=== PATIENT | female | born 1975 | race American Indian/Alaskan Native ===

== ENCOUNTER 2017-10-07 19:52 | Emergency (ER) | payer OTHER ==
[2017-10-07 20:10] VITALS: BP 154/83; PULSE 75; RESP 18; TEMP 98.7; O2SAT 100
--- NOTE | 2017-10-07 20:43 | ED PDOC ---
Arrival/HPI <Alistair Avitia - Last Filed: 10/07/17 22:35> - General Historian: Patient <Ruben Baez - Last Filed: 10/08/17 17:06> - General Chief Complaint: Abnormal Skin Integrity Time Seen by Provider: 10/07/17 20:31 - History of Present Illness Narrative History of Present Illness (Text): 10/07/17 20:39 42 y/o female, no significant pmh, nkda, last tetanus under 2 years ago, c/o rt. 4th digit s/p cut by the glass while at work about 1 hour ago. Pt. stated that the wound was bleeding but resolved, no numbness or tingling, no palpitation, no rash, no night sweat, no other medical or psychological complaints. (Ruben Baez) Past Medical History - Provider Review Nursing Documentation Reviewed: Yes - Psychiatric Hx Substance Use: No <Ruben Baez - Last Filed: 10/08/17 17:06> Family/Social History - Physician Review Nursing Documentation Reviewed: Yes Family/Social History: Unknown Family HX Smoking Status: Never Smoked Hx Alcohol Use: No Hx Substance Use: No <Ruben Baez - Last Filed: 10/08/17 17:06> Allergies/Home Meds <Alistair Avitia - Last Filed: 10/07/17 22:35> <Ruben Baez - Last Filed: 10/08/17 17:06> Allergies/Adverse Reactions: Allergies No Known Allergies Allergy (Verified 10/07/17 20:08) Home Medications: Home Meds Medication Instructions Recorded Confirmed Multivitamin [Multivitamins] 1 tab PO DAILY 10/07/17 10/07/17 Review of Systems - Review of Systems Constitutional: absent: Fatigue, Fevers Eyes: absent: Vision Changes ENT: absent: Hearing Changes Respiratory: absent: SOB, Cough Cardiovascular: absent: Chest Pain Gastrointestinal: absent: Abdominal Pain, Nausea, Vomiting Skin: Laceration. absent: Rash, Pruritis, Skin Lesions, Abscess, Ulcer Psychiatric: absent: Anxiety, Depression, Suicidal Ideation <Ruben Baez - Last Filed: 10/08/17 17:06> Physical Exam Vital Signs Reviewed: Yes Temperature: Afebrile Blood Pressure: Normal Pulse: Regular Respiratory Rate: Normal Appearance: Positive for: Well-Appearing, Non-Toxic, Comfortable Pain Distress: Mild Mental Status: Positive for: Alert and Oriented X 3 - Systems Exam Head: Present: Atraumatic, Normocephalic Pupils: Present: PERRL Extroacular Muscles: Present: EOMI Conjunctiva: Present: Normal Mouth: Present: Moist Mucous Membranes Neck: Present: Normal Range of Motion Respiratory/Chest: Present: Clear to Auscultation, Good Air Exchange. No: Respiratory Distress, Accessory Muscle Use Cardiovascular: Present: Regular Rate and Rhythm, Normal S1, S2. No: Murmurs Abdomen: Present: Normal Bowel Sounds. No: Tenderness, Distention, Peritoneal Signs Back: Present: Normal Inspection Upper Extremity: Present: Normal Inspection, Other (Rt. hand 4th digit: visible wound approx. less than 0.5cm superficial laceration wound with no opening gapping, FROM without limitation, sensation intact, motor 5/5, +radial pulse, capillary refill< 2 seconds, neurovascular intact. ). No: Cyanosis, Edema Lower Extremity: Present: Normal Inspection. No: Edema Neurological: Present: GCS=15, CN II-XII Intact, Speech Normal Skin: Present: Warm, Dry, Normal Color. No: Rashes Psychiatric: Present: Alert, Oriented x 3, Normal Insight, Normal Concentration <Ruben Baez - Last Filed: 10/08/17 17:06> Vital Signs Temp Pulse Resp BP Pulse Ox 10/07/17 20:09 98.7 F 75 18 154/83 H 100 Medical Decision Making <Alistair Avitia - Last Filed: 10/07/17 22:35> - RAD Interpretation Engineer [employer]: Radiologist <Ruben Baez - Last Filed: 10/08/17 17:06> ED Course and Treatment: 10/07/17 20:44 -Xray r/o foreign bodies -wound irrigate with normal saline, clean with betadine, bacitracin and gauze dressing. 10/07/17 21:58 -Xray show no fracture/dislocation/foreign bodies. -Cleocin ordered -Discharge home with cleocin, motrin, follow up with your own pmd and hand specialist within 2 days, see employee health tomorrow, return to the Er for any new or worsening signs or symptoms. (Ruben Baez) - RAD Interpretation Radiology Orders: 10/07/17 20:45 HAND RIGHT 4TH DIGIT (FINGER) [RAD] Stat 10/07/17 20:45 HAND RIGHT 4TH DIGIT (FINGER) [RAD] Stat no acute fracture/dislocation/foreign bodies. (Ruben Baez) - Medication Orders Current Medication Orders: Discontinued Medications Clindamycin HCl (Cleocin) 300 mg PO STAT STA PRN Reason: Protocol Stop: 10/07/17 21:57 Last Admin: 10/07/17 22:14 Dose: 300 mg - PA / CUT AND COVER [employer] WORKER / Resident Statement DANIEL has reviewed & agrees with the documentation as recorded. DANIEL has examined the patient and agrees with the treatment plan. <Alistair Avitia - Last Filed: 10/07/17 22:35> - PA / C[employer] AND [employer] WORKER / Resident Statement DANIEL has reviewed & agrees with the documentation as recorded. <Ruben Baez - Last Filed: 10/08/17 17:06> Disposition/Present on Arrival <Alistair Avitia - Last Filed: 10/07/17 22:35> - Present on Arrival Any Indicators Present on Arrival: No History of DVT/PE: No History of Uncontrolled Diabetes: No Urinary Catheter: No History of Decub. Ulcer: No History Surgical Site Infection Following: None - Disposition Have Diagnosis and Disposition been Completed?: Yes Disposition Time: 20:45 Patient Plan: Discharge <Ruben Baez - Last Filed: 10/08/17 17:06> - Disposition Diagnosis: Finger laceration Disposition: HOME/ ROUTINE Condition: GOOD Additional Instructions: -Discharge home with cleocin, motrin, follow up with your own pmd and hand specialist within 2 days, see employee health tomorrow, return to the Er for any new or worsening signs or symptoms. Prescriptions: Clindamycin [Cleocin] 300 mg PO TID #21 cap Ibuprofen [Motrin] 600 mg PO TID PRN #21 tab PRN Reason: Other Referrals: Hayden Burris MD [Primary Care Provider] - Follow up with primary Isiah Flores MD [Staff Provider] - Follow up with primary Forms: [employer] (Ukrainian), WORK NOTE
--- NOTE | 2017-10-08 09:06 | RAD ---
PROCEDURE: Right ring finger radiographs. The the HISTORY: 4th digit tip glass laceration COMPARISON: None. TECHNIQUE: AP radiograph of the right hand, as well as spot oblique and lateral images of ring finger were obtained. FINDINGS: RIGHT RING FINGER: Normal right ring finger, without fracture or focal lesion. Remainder of the right hand (as seen on the AP view) grossly unremarkable. JOINTS: Normal. SOFT TISSUES: . No definitive radiopaque foreign bodies are identified. No the the the the the obvious subcutaneous emphysema OTHER FINDINGS: None. IMPRESSION: No evidence of acute displaced fracture nor dislocation. No definitive radiopaque foreign bodies are identified
== END 2017-10-07 22:05 | disposition home or self-care (01) ==
LOC: ED 19:52
DX: S61.214A Laceration without foreign body of right ring finger without damage to nail, initial encounter (principal); W25.XXXA Contact with sharp glass, initial encounter; Y99.0 Civilian activity done for income or pay